=== PATIENT | male | born 1995 | race Caucasian/White ===

== ENCOUNTER 2021-10-20 21:48 | Inpatient (IN) ==
[2021-10-20 22:21] LABS: Basophils % 0.3 %; Eosinophils # 0.4 K/mcL (0.0-0.6); Eosinophils % 4.7 %; Hematocrit 40.8 % (37.5-50.1); Immature Granulocytes % 0.3 % (0-4); Lymphocytes # 2.1 K/mcL (0.6-4.6); Lymphocytes % 23.1 %; Mean Corpuscular HGB Conc 34.3 g/dL (31.6-35.5); Mean Corpuscular Hemoglobin 33.2 pg (28.0-33.3); Mean Corpuscular Volume 96.7 fL (83.0-100.0); Monocytes # 0.9 K/mcL (0.0-1.3); Monocytes % 10.2 %; Neutrophils # 5.7 K/mcL (1.6-8.9); Platelet Count 235 K/mcL (140-400); Red Blood Count 4.22 M/mcL (4.19-5.50); Red Cell Distribution Width 13.2 % (11.5-14.5); Segmented Neutrophils % 61.4 %; White Blood Count 9.2 K/mcL (4.3-11.1)
[2021-10-20 22:24] LABS: Bilirubin,Urine Negative (Negative); Blood,Urine Small (Negative); Clarity,Urine Clear (Clear); Color,Urine Light-Yellow (Yellow); Glucose,Urine (UA) Normal (Normal); Hyaline Casts,Urine Few per lpf (None Seen); Ketones,Urine Negative (Negative); Leukocyte Esterase,Urine Negative (Negative); Mucus,Urine Few per lpf (None-Few); Nitrite,Urine Negative (Negative); Protein,Urine 70 mg/dL (Neg-Trace); Specific Gravity,Urine 1.028 (1.010-1.025); Squamous Epithelial Cell,Urine Few per hpf (None-Few); Urobilinogen,Urine Normal (Normal); WBC,Urine 0-3 per hpf (0-3)
[2021-10-20 22:43] LABS: Acetaminophen < 10 mcg/mL (10-20); BUN/Creatinine Ratio 13 (6-26); Blood Urea Nitrogen 17 mg/dL (6-20); Calcium 9.7 mg/dL (8.6-10.3); Carbon Dioxide 26 mEq/L (23-29); Chloride 106 mEq/L (98-107); Ethanol < 10 mg/dL (Less than 10); Glucose 95 mg/dL (70-105); Osmolality,Calculated 287 (280-300); Potassium 3.9 mEq/L (3.5-5.1); Salicylate < 2.5 mg/dL (15.0-30.0); Sodium 138 mEq/L (136-145); eGFR For African Americans > 60 (> 60); eGFR For Non-African Americans > 60 (> 60)
[2021-10-21 00:10] LABS: Amphetamine Screen,Urine Positive ng/mL (Cutoff=1000); Barbiturate Screen,Urine Negative ng/mL (Cutoff=200); Benzodiazepines Screen,Urine Negative ng/mL (Cutoff=200); Cannabinoid Screen,Urine Positive ng/mL (Cutoff = 50); Cocaine Screen,Urine Negative ng/mL (Cutoff= 300); Opiate Screen,Urine Negative ng/mL (Cutoff=300); Phencyclidine Screen,Urine Negative ng/mL (Cutoff=25)
[2021-10-21 02:59] LABS: Influenza A PCR Negative (Negative); Influenza B PCR Negative (Negative); Resp. Syncytial Virus PCR Negative (Negative); SARS-CoV-2 by PCR (In House) Negative (Negative)
[2021-10-21] MEDS ORDERED: Haloperidol Lactate 5 MG/ML VIAL IM PRN (03:04)
[2021-10-21] MEDS ORDERED: QUEtiapine Fumarate 25 MG TABLET PO PRN (03:04)
[2021-10-21] MEDS ORDERED: *HR* LORazepam 1 MG TABLET PO PRN (03:04)
[2021-10-21] MEDS ORDERED: haloperidoL 5 MG TABLET PO PRN (03:04)
[2021-10-21] MEDS ORDERED: *HR* LORazepam 2 MG/ML VIAL IM PRN (03:04)
[2021-10-21] MEDS: lamoTRIgine 100 MG TABLET PO SCH ×2 (09:49→20:42)
[2021-10-21] MEDS: QUEtiapine Fumarate 100 MG TABLET PO SCH (20:42)
[2021-10-21] MEDS: hydrOXYzine pamoate 25 MG CAPSULE PO PRN (20:42)
[2021-10-21] MEDS: Nicotine 14 MG PATCH.TD24 TD SCH (20:44)
[2021-10-21] MEDS ORDERED: QUEtiapine Fumarate 25 MG TABLET PO SCH (21:00)
[2021-10-22] MEDS: Nicotine 14 MG PATCH.TD24 TD SCH (08:45)
[2021-10-22] MEDS: lamoTRIgine 100 MG TABLET PO SCH ×2 (08:46→20:34)
[2021-10-22] MEDS: hydrOXYzine pamoate 25 MG CAPSULE PO PRN (20:34)
[2021-10-22] MEDS: QUEtiapine Fumarate 100 MG TABLET PO SCH (20:34)
[2021-10-23] MEDS: Nicotine 14 MG PATCH.TD24 TD SCH (08:40)
[2021-10-23] MEDS: lamoTRIgine 100 MG TABLET PO SCH (08:41)
[2021-10-23 08:42] VITALS: BP 152/92; PULSE 114; TEMP 98.1; O2SAT 97
== END 2021-10-23 14:28 | disposition home or self-care (01) | DRG 751 ==
LOC: EMEROOARM 21:48 → 1ANU 10-21 03:07 → SUATTDRO 10-21 03:07 → 1ANU 10-21 03:47
PROVIDERS: ADMIT Psychiatry & Neurology Psychiatry; ATTEND Psychiatry & Neurology Psychiatry